=== PATIENT | male | born 1950 | race Caucasian/White ===

== ENCOUNTER → 2020-04-01 | Emergency (ER) | payer OTHER ==
[~2020-04-01] VITALS: Ht 172.7 cm; Wt 81.6 kg
[~2020-04-01] MED LIST: COZAAR50 MG
== END | disposition left against medical advice (07) ==
LOC: ER 12:15
DX: K80.42 Calculus of bile duct with acute cholecystitis without obstruction (principal)

== ENCOUNTER 2020-04-14 06:05 | Day surgery (SDC) | payer OTHER | END 2020-04-14 10:30 | disposition home or self-care (01) | LOC: AMB-ENDOS 06:05 | PROVIDERS: ATTEND Internal Medicine Gastroenterology | DX: K80.42 Calculus of bile duct with acute cholecystitis without obstruction (principal) ==

== ENCOUNTER 2024-12-16 08:38 | Emergency (ER) | payer OTHER ==
[~2024-12-16] VITALS: Ht 172.7 cm; Wt 81.6 kg
[2024-12-16] MEDS ORDERED: NORVASC5 MG PO (09:10)
[2024-12-16] MEDS ORDERED: LEVALBUTEROL HCL 1.25 MG/3 ML SOLUTION IH STA (09:59)
[2024-12-16] MEDS ORDERED: LEVALBUTEROL HCL 1.25 MG/3 ML SOLUTION IH ONE (10:36)
[2024-12-16 10:46] LABS: ABG PH 7.427 (7.35-7.45); ABG PO2 85.2 mmHg (80-100); ABG pCO2 39.5 mmHg (35-45); BASE EXCESS 1.1 mmol/l; BICARBONATE 25.4 mmol/l (23-25); SaO2 96.7 %; Tco2 26.7 mmol/l
[2024-12-16 10:49] LABS: HEMATOCRIT 42.5 % (39.0-48.0); HEMOGLOBIN 14.5 g/dL (13-16.00); MEAN CELL VOLUME 89.4 fL (80.0-100.00); MEAN CORPUSCULAR HEMOGLOBIN 30.5 pg (27.00-32.0); MEAN CORPUSCULAR HGB CONC 34.1 g/dl (32.0-36.0); PLATELET COUNT 215 K/uL (150-450); RED BLOOD COUNT 4.75 M/uL (4.00-6.00); RED CELL DISTRIBUTION WIDTH 13.2 % (11.5-14.5)
[2024-12-16 11:29] LABS: allen test SATISFACTORY; puncture site RADIAL RIGHT
[2024-12-16 11:30] LABS: o2 21 %
== END 2024-12-16 12:39 | disposition home or self-care (01) ==
LOC: ER 08:40
PROVIDERS: General Practice
DX: R05.8 Other specified cough (principal); I10 Essential (primary) hypertension; J40 Bronchitis, not specified as acute or chronic; Z20.822 Contact with and (suspected) exposure to COVID-19